=== PATIENT | female | born 1965 | race Caucasian/White ===

== ENCOUNTER 2018-03-19 12:38 | Emergency (ER) | payer OTHER ==
[~2018-03-19] VITALS: Ht 149.9 cm; Wt 59.4 kg
[~2018-03-19 12:38] MED LIST: HYDACE10B PO; HYDSUL200 PO; MELO7.5 PO; PRED5 PO; TRAM50 PO
== END 2018-03-19 13:33 | disposition home or self-care (01) ==
LOC: ER 12:38
DX: S16.1XXA Strain of muscle, fascia and tendon at neck level, initial encounter (principal); V43.52XA Car driver injured in collision with other type car in traffic accident, initial encounter; Z88.8 Allergy status to other drugs, medicaments and biological substances; Z79.899 Other long term (current) drug therapy; F17.200 Nicotine dependence, unspecified, uncomplicated
CPT/HCPCS: 72040; 99284-25